=== PATIENT | female | born 1965 | race Caucasian/White ===

== ENCOUNTER 2019-03-22 09:20 | Outpatient (CLI) | payer OTHER | END 2019-03-22 09:21 | disposition home or self-care (01) | LOC: DI 09:20 | PROVIDERS: ATTEND Internal Medicine Hematology & Oncology | DX: C50.911 Malignant neoplasm of unspecified site of right female breast (principal) | CPT/HCPCS: 93306 ==

== ENCOUNTER 2021-10-12 13:49 | Outpatient (CLI) | payer OTHER ==
[2021-10-12] MEDS ORDERED: IOVERSOL 320 100 ML VIAL IVP ONE ×2 (14:03→20:51)
[2021-10-12] MEDS ORDERED: IOVERSOL 320 50 ML VIAL ONE (14:03)
--- NOTE | 2021-10-12 16:15 | CT Report ---
PROCEDURE: Abdomen/Pelvis W INDICATIONS: Inguinal lymphadenopathy. The patient reports right side inguinal pain and swelling. CONTRAST: IV CONTRAST: Optiray 320: 100 mL. TECHNIQUE: After the administration of oral and intravenous contrast, 5 mm thick sections acquired from the diap hragms to the symphysis. 5 mm thick coronal and sagittal reformats were acquired. For radiation dos e reduction, the following was used: automated exposure control, adjustment of mA and/or kV accordin g to patient size. COMPARISON: None. FINDINGS: Image quality: Excellent. ABDOMEN: Lung bases: Lung bases are clear. Heart size is normal. Right mastectomy. Small hiatal hernia. Solid organs: Liver and spleen are normal in size and enhancement. Gallbladder Biliary system is non dilated. Pancreas enhances normally. No adrenal nodules. Kidneys demonstrate normal size an d enhancement, without hydronephrosis. Peritoneum and bowel: Bowel loops demonstrate normal wall thickness and caliber. No free fluid or a ir. Nodes and vessels: No retroperitoneal or mesenteric adenopathy by size criteria. Aorta and inferior vena cava are normal in size. Miscellaneous: No ventral hernias. PELVIS: Genitourinary: Bladder wall thickness is normal. Uterus and ovaries are normal. No adnexal mass. Th ere is a small amount of free fluid in the cul-de-sac. Miscellaneous: No inguinal hernias or adenopathy. Small inguinal lymph nodes nodes are noted bilate rally, nonspecific. Bones: No suspicious bony lesions. No vertebral body compression fractures. Small sclerotic foci in the left acetabulum and right femoral head and neck are probably small bone islands. IMPRESSION: 1. No enlarged inguinal lymph nodes or inguinal hernia. 2. A small amount of free fluid in the cul-de-sac, probably within physiological limits. Reviewed by: Fannie Dickens MD on 10/12/2021 4:13 PM PST Approved by: Fannie Dickesn MD on 10/12/2021 4:13 PM PST Station ID: [id number]
[2021-10-12] MEDS ORDERED: IOVERSOL 320 50 ML VIAL PO ONE (20:52)
== END 2021-10-12 13:50 | disposition home or self-care (01) ==
LOC: DI 13:49
PROVIDERS: ATTEND Surgery
DX: C50.919 Malignant neoplasm of unspecified site of unspecified female breast (principal); R10.31 Right lower quadrant pain
CPT/HCPCS: 74177; Q9967

== ENCOUNTER 2022-04-23 06:21 | Day surgery (SDC) | payer OTHER ==
[~2022-04-23 06:21] MED LIST: CEFAZOLIN SODIUM IN 0.9 % NACL 2 GM/50 ML BAG IV ONE
[2022-04-23] MEDS ORDERED: LACTATED RINGERS 1,000 ML IV ONE ×2 (06:47→08:45)
[2022-04-23] MEDS ORDERED: PROPOFOL 500 MG/50 ML 500 MG/50 ML VIAL ONE (07:19)
[2022-04-23] MEDS ORDERED: BUPIVACAINE 0.25% PF 10 ML VIAL ONE (07:22)
[2022-04-23] MEDS ORDERED: LIDOCAINE 2%-EPI 1:100000 20 ML MDV ONE (07:22)
--- NOTE | 2022-04-23 07:22 | HISTORY & PHYSICAL EXAMINATION ---
Chief Complaint - Chief Complaint Chief Complaint: metastatic breast cancer History of Present Illness - History Obtained From Records Reviewed: yes History obtained from: pt Exam Limitations: none - History of Present Illness HPI Comment/Other: history right breast cancer. now metastatic and needs port and chemotherapy again. 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, Mastectomy Meds/Allgy - Home Medications Home Medications: Ambulatory Orders Medication Instructions Recorded Confirmed Triamcinolone 0.1% Oint [Kenalog 1 applic TD BID PRN 03/19/19 04/23/22 0.1% Oint] B Complex W-C No.20/Folic Acid 1 mg PO DAILY 07/23/19 04/23/22 [Virt-Caps Softgel] Propranolol [Inderal] 10 mg PO BID 04/22/22 04/23/22 - Allergies Allergies/Adverse Reactions: Allergies Allergy/AdvReac Type Severity Reaction Status Date / Time latex Allergy Rash Verified 07/07/20 10:46 morphine Allergy Unknown Verified 07/07/20 10:46 Review of Systems - Other Findings Other Findings: 10 pt ros as above otherwise unremarkable Exam - Vital Signs Vital Signs: Vital Signs x48h Temp Pulse Resp BP Pulse Ox 04/23/22 06:35 36.8 C 68 16 104/78 98 - Physical Exam General Appearance: positive: No acute distress, Alert ENT: positive: No signs of dehydration Neck: positive: No JVD, Trachea midline, Lymphadenopathy (L) Respiratory: positive: No respiratory distress, Breath sounds nml Abdomen: positive: Non-tender, No distention Neurologic/Psychiatric: positive: Oriented x3 Conclusion/Plan - Problem List (1) Breast cancer metastasized to bone Conclusion/Plan: plan chemotherapy port. parq held and consent obtained.
[2022-04-23] MEDS ORDERED: HYDROmorphone 0.5 MG/0.5 ML SYRINGE IVP PRN (07:27)
[2022-04-23] MEDS ORDERED: MORPHINE 2 MG/ML CARPUJECT IVP PRN (07:27)
[2022-04-23] MEDS ORDERED: ePHEDrine 50 MG/ML VIAL IVP PRN (07:27)
[2022-04-23] MEDS ORDERED: ONDANSETRON 4 MG/2 ML VIAL IVP PRN (07:27)
[2022-04-23] MEDS ORDERED: METOCLOPRAMIDE 10 MG/2 ML VIAL IVP PRN (07:27)
[2022-04-23] MEDS ORDERED: ATROPINE ABBOJECT 1 MG/10 ML SYRINGE IVP PRN (07:27)
[2022-04-23] MEDS ORDERED: fentaNYL 100 MCG/2 ML VIAL IVP PRN (07:27)
[2022-04-23] MEDS ORDERED: NALOXONE 0.4 MG/ML VIAL IVP PRN (07:27)
--- NOTE | 2022-04-23 07:27 | ANESTHESIA ---
Pre-Anesthesia VS, & Labs - Diagnosis Breast CA - Procedure port placement Vital Signs: Temp Pulse Resp BP Pulse Ox 36.8 C 68 16 104/78 98 04/23/22 06:35 04/23/22 06:35 04/23/22 06:35 04/23/22 06:35 04/23/22 06:35 Height: 5 ft 8 in Weight (kg): 67.1 kg Body Mass Index: 22.4 BMI Classification: Healthy weight - NPO >8 hours - Is Patient ?: No Home Medications and Allergies Home Medications: Ambulatory Orders Propranolol [Inderal] 10 mg PO BID 04/22/22 Triamcinolone 0.1% Oint [Kenalog 0.1% Oint] 1 applic TD BID PRN 03/19/19 B Complex W-C No.20/Folic Acid [Virt-Caps Softgel] 1 mg PO DAILY 07/23/19 Propranolol [Inderal] 10 mg PO BID 04/22/22 Allergies/Adverse Reactions: Allergies Allergy/AdvReac Type Severity Reaction Status Date / Time latex Allergy Rash Verified 07/07/20 10:46 morphine Allergy Unknown Verified 07/07/20 10:46 Anes History & Medical History - Anesthetic History Anesthesia Complications: reports: No previous complications Family history of Anesthesia Complications: Denies Family history of Malignant Hyperthermia: Denies - Medical History Cardiovascular: reports: None Pulmonary: reports: None Gastrointestinal: reports: None Urinary: reports: None Neuro: reports: None Musculoskeletal: reports: None Endocrine/Autoimmune: reports: None Blood Disorders: reports: None Skin: reports: None, Eczema Smoking Status: Never smoker History of Cancer?: Yes - Surgical History Gynecologic: reports: Tubal ligation, Mastectomy Exam General: Alert, Oriented x3, Cooperative Dental: WNL Mouth Openin Fingerbreadth Neck Mobility: Normal Mallampati classification: I Thyromental Distance: 4-6 cm Respiratory: Lungs clear Cardiovascular: Regular rate Plan Anesthesia Type: General Consent for Procedure(s) Verified and Reviewed: Yes Code Status: Attempt Resuscitation ASA classification: 3-Severe systemic disease Is this case an emergency?: No
[2022-04-23] MEDS ORDERED: MIDAZOLAM 2 MG/2 ML VIAL ONE (07:34)
[2022-04-23] MEDS ORDERED: LIDOCAINE-MPF 2% 5 ML VIAL ONE (07:36)
[2022-04-23] MEDS ORDERED: fentaNYL 100 MCG/2 ML VIAL ONE (07:39)
[2022-04-23] MEDS ORDERED: ACETAMINOPHEN 1,000 MG/100 ML 100 ML IV ONE (07:39)
[2022-04-23] MEDS ORDERED: DEXAMETHASONE 4 MG/ML VIAL ONE (07:43)
[2022-04-23] MEDS ORDERED: LACTATED RINGERS 1,000 ML IV SCH (08:00)
[2022-04-23] MEDS ORDERED: ePHEDrine 50 MG/ML VIAL IVP ONE (08:26)
[2022-04-23] MEDS ORDERED: SODIUM CHLORIDE 0.9% 100 ML BAG IV ONE (08:26)
[2022-04-23] MEDS ORDERED: BUPIVACAINE 0.25% PF 30 ML VIAL SUBQ ONE ×2 (08:29)
[2022-04-23] MEDS ORDERED: HYDROcod/ACETAM 5/325 MG TABLET PO PRN (08:45)
--- NOTE | 2022-04-23 08:50 | OPERATIVE REPORT ---
Operative Report - General Procedure Date: 04/23/22 Planned Procedure: port placement for chemotherapy Pre-Op Diagnosis: metastatic breast cancer Procedure Performed: left subclavian power port placement fluoro guidance Post Op Diagnosis: metatastatic breast cancer - Procedure Note Primary Surgeon: landon harris Anesthesia Technique: General LMA, Local Pathology: none Estimated Blood Loss (mL): 5 Drain/Tube Type: Other (none) Indications: need for chemotherapy Findings: good placement with tip at svc/ atrium junction. good flush and flow Complications: none - Other Other Information/Narrative: The patient was properly identified brought to the operating room and placed in supine position. Monitored anesthesia care was given as well as IV sedation. A towel roll was placed under the upper back. The patient was prepped and draped in a sterile fashion and given preoperative antibiotics. Local anesthetic was given. The left subclavian vein was easily accessed first pass with a needle. Guide wire placed and position confirmed. A subcutaneous pocket on the left upper chest was created measuring approximately 2-1/2 cm. Portacatheter tubing was then placed subcutaneous up to the venous access point. The portacatheter tubing was then easily placed with the use of a dilator peel-away sheath. The tubing was aspirated and flushed with saline. Under fluoroscopic guidance the tubing was pulled back to the junction of the atrium and the superior vena cava. The portacatheter aspirated and flushed easily assuring good position. The portacatheter was then cut to size and further assembled. The port was secured to subcutaneous tissue with 2 interrupted 4-0 Prolene sutures. The port again was aspirated and flushed now with heparin. Buried interrupted subdermal 3-0 Vicryl sutures were then placed. Skin was closed with buried interrupted and running 4-0 Monocryl subcuticular suture. Dressing was applied. The patient tolerated the procedure well was awakened and brought to recovery in good condition.
--- NOTE | 2022-04-23 08:54 | XRAY Report ---
PROCEDURE: OR Port-A-Cath INDICATIONS: Port placement TECHNIQUE: 1 Fluoroscopic image of the right chest. COMPARISON: None. FINDINGS: Central venous line catheter tip projecting in the region of the cavoatrial junction. IMPRESSION: Intraoperative guidance provided for central venous line placement. Reviewed by: Morro Ross MD on 04/23/2022 8:52 AM PDT Approved by: Morro Ross MD on 04/23/2022 8:52 AM PDT Station ID: [id number]
[2022-04-23 09:16] VITALS: BP 106/70
--- NOTE | 2022-04-23 16:00 | ANESTHESIA POST OP EVALUATION ---
Anesthesia Post Eval - Post Anesthesia Eval Vitals: Last Vital Signs Temp 36.6 C 04/23/22 09:15 Pulse 72 04/23/22 09:15 Resp 16 04/23/22 09:15 BP 106/70 04/23/22 09:15 Pulse Ox 99 04/23/22 09:15 CV Function Including HR & BP: Stable Pain Control: Satisfactory Nausea & Vomiting: Negative Mental Status: Baseline Respiratory Status: Airway Patent Hydration Status: Satisfactory Anesthesia Complications: None
== END 2022-04-23 06:22 | disposition home or self-care (01) ==
LOC: SDS 06:21
PROVIDERS: ATTEND Surgery
DX: C50.911 Malignant neoplasm of unspecified site of right female breast (principal); C79.51 Secondary malignant neoplasm of bone
CPT/HCPCS: 36561; C1788; J0131; J0690; J7120

== ENCOUNTER 2022-06-02 11:33 | Outpatient (CLI) | payer OTHER ==
[2022-06-02 12:40] LABS: INR 1.3 (0.8-1.2)
[2022-06-02] MEDS ORDERED: lidocaine 1% 20 ML MDV ONE (12:56)
--- NOTE | 2022-06-02 16:25 | Ultrasound Report ---
PROCEDURE: Chest INDICATIONS: PLEURAL EFFUSION TECHNIQUE: Real-time scanning was performed, and a suitable site was marked by the energy conservation engineer for thoracentesis to be performed by the referring clinician. COMPARISON: None. FINDINGS: Sonographic images demonstrate significant loculated effusion in the right chest. The left chest demo nstrated mild loculation with mild amount of fluid. IMPRESSION: Significant right loculated pleural fluid. Mild left loculated fluid with mild free fluid. Secondary to significant concern of right-sided pain as well as only mild appearance of free fluid on the left, thoracentesis was not performed. Reviewed by: Dionne Valle MD on 06/02/2022 4:24 PM PDT Approved by: Dionne Valle MD on 06/02/2022 4:24 PM PDT Station ID: [id number]
== END 2022-06-02 11:34 | disposition home or self-care (01) ==
LOC: DI 11:33
PROVIDERS: ATTEND Internal Medicine Hematology & Oncology
DX: C50.919 Malignant neoplasm of unspecified site of unspecified female breast (principal); J90 Pleural effusion, not elsewhere classified
CPT/HCPCS: 36415; 85610